=== PATIENT | female | born 1975 | race Caucasian/White ===

== ENCOUNTER 2023-12-14 12:05 | Emergency (ER) | payer OTHER ==
[2023-12-14 12:37] LABS: BASOPHILS ABSOLUTE AUTO 0.05 K/uL (0.00-0.20); BASOPHILS PERCENT AUTO 0.7 % (0.0-1.0); EOSINOPHILS ABSOLUTE AUTO 0.06 K/uL (0.00-0.45); EOSINOPHILS PERCENT AUTO 0.9 % (0.0-6.0); HEMATOCRIT 43.7 % (37.0-47.0); HEMOGLOBIN 14.9 g/dL (12.0-16.0); IMMATURE GRAN ABSOLUTE AUTO 0.02 K/uL (0.00-0.05); IMMATURE GRAN PERCENT AUTO 0.3 % (0.0-0.4); LYMPHOCYTES ABSOLUTE AUTO 1.67 K/uL (1.00-4.80); LYMPHOCYTES PERCENT AUTO 23.7 % (24.0-44.0); MEAN CORPUSCULAR HEMOGLOBIN 31.1 pg (28.0-32.0); MEAN CORPUSCULAR HGB CONC 34.1 g/dL (32.0-36.0); MEAN CORPUSCULAR VOLUME 91.2 fL (83.0-99.0); MEAN PLATELET VOLUME 9.5 fL (9.4-12.3); MONOCYTES ABSOLUTE AUTO 0.45 K/uL (0.00-0.80); MONOCYTES PERCENT AUTO 6.4 % (0.0-8.0); PLATELET COUNT,PLT 324 K/uL (150-400); RED BLOOD CELL COUNT 4.79 M/uL (4.10-5.30); WHITE BLOOD CELL COUNT,WBC 7.05 K/uL (3.9-11.3)
[2023-12-14] MEDS: Ondansetron 4 MG/2 ML SDV IVPUSH ONE (13:13)
[2023-12-14] MEDS: Ketorolac 30 MG/ML SDV IVPUSH ONE (13:13)
[2023-12-14] MEDS: Sodium Chloride 0.9% 1,000 ML IV ONE (13:13)
[2023-12-14 13:31] LABS: A/G RATIO 0.9 (0.9-1.6); ALBUMIN 3.2 g/dL (3.4-5.0); BILIRUBIN TOTAL 0.4 mg/dL (0.2-1.0); CALCIUM 8.3 mg/dL (8.5-10.1); CARBON DIOXIDE,CO2 31.5 mmol/L (21.0-32.0); EST CRCL DRUG DOSING (CG) 53.82 mL/min; POTASSIUM,K 4.3 mmol/L (3.5-5.1); PROTEIN TOTAL,TP 6.6 g/dL (6.4-8.2); TSH ULTRASENSITIVE 1.27 uIU/mL (0.36-3.74)
[2023-12-14 14:10] LABS: CORONAVIRUS COVID-19 NAA NEGATIVE (NEGATIVE); INFLUENZA A NAA NEGATIVE (NEGATIVE); INFLUENZA B NAA NEGATIVE (NEGATIVE)
== END 2023-12-14 15:17 | disposition home or self-care (01) ==
LOC: MW.ED 12:05
DX: I10 Essential (primary) hypertension (principal); R51.9 Headache, unspecified; Z90.49 Acquired absence of other specified parts of digestive tract; Z88.8 Allergy status to other drugs, medicaments and biological substances; Z88.5 Allergy status to narcotic agent; Z75.8 Other problems related to medical facilities and other health care
CPT/HCPCS: 0240U; 36415; 71045; 80053; 84443; 84484; 85025; 85379; 96361; 96374; 96375; 99284; J1885; J2405; J7030; 93010

== ENCOUNTER 2023-12-18 14:23 | Emergency (ER) | payer OTHER ==
[2023-12-18] MEDS: Sodium Chloride 0.9% 1,000 ML IV ONE ×2 (14:42→14:43)
[2023-12-18 14:51] LABS: BASOPHILS ABSOLUTE AUTO 0.08 K/uL (0.00-0.20); BASOPHILS PERCENT AUTO 1.2 % (0.0-1.0); EOSINOPHILS ABSOLUTE AUTO 0.17 K/uL (0.00-0.45); EOSINOPHILS PERCENT AUTO 2.6 % (0.0-6.0); HEMATOCRIT 42.7 % (37.0-47.0); HEMOGLOBIN 14.4 g/dL (12.0-16.0); IMMATURE GRAN ABSOLUTE AUTO 0.02 K/uL (0.00-0.05); IMMATURE GRAN PERCENT AUTO 0.3 % (0.0-0.4); LYMPHOCYTES ABSOLUTE AUTO 2.57 K/uL (1.00-4.80); LYMPHOCYTES PERCENT AUTO 38.9 % (24.0-44.0); MEAN CORPUSCULAR HEMOGLOBIN 30.8 pg (28.0-32.0); MEAN CORPUSCULAR HGB CONC 33.7 g/dL (32.0-36.0); MEAN CORPUSCULAR VOLUME 91.2 fL (83.0-99.0); MEAN PLATELET VOLUME 9.7 fL (9.4-12.3); MONOCYTES ABSOLUTE AUTO 0.56 K/uL (0.00-0.80); MONOCYTES PERCENT AUTO 8.5 % (0.0-8.0); NEUTROPHILS PERCENT AUTO 48.5 % (41.0-71.0); PLATELET COUNT,PLT 286 K/uL (150-400); RED BLOOD CELL COUNT 4.68 M/uL (4.10-5.30)
[2023-12-18 15:16] LABS: A/G RATIO 0.9 (0.9-1.6); ALANINE AMINOTRANSFERASE,ALT 34 IU/L (14-63); ALBUMIN 2.9 g/dL (3.4-5.0); ALKALINE PHOSPHATASE 78 U/L (46-116); ASPARTATE AMNIOTRANSFERASE,AST 32 IU/L (15-37); BILIRUBIN TOTAL 0.3 mg/dL (0.2-1.0); BLOOD UREA NITROGEN,BUN 12 mg/dL (7.0-18.0); CALCIUM 8.3 mg/dL (8.5-10.1); CARBON DIOXIDE,CO2 22.1 mmol/L (21.0-32.0); CHLORIDE,CL 104 mmol/L (98-107); CREATININE 1.1 mg/dL (0.6-1.0); EST CRCL DRUG DOSING (CG) 48.93 mL/min; ESTIMATED GFR 62 mL/min (>60); GLUCOSE RANDOM 110 mg/dL (74-106); POTASSIUM,K 3.9 mmol/L (3.5-5.1); SODIUM,NA 137 mmol/L (136-145)
== END 2023-12-18 17:39 | disposition home or self-care (01) ==
LOC: MW.ED 14:23
DX: T46.5X1A Poisoning by other antihypertensive drugs, accidental (unintentional), initial encounter (principal); I95.9 Hypotension, unspecified; Z75.8 Other problems related to medical facilities and other health care; I10 Essential (primary) hypertension; Z90.49 Acquired absence of other specified parts of digestive tract; Z90.710 Acquired absence of both cervix and uterus; Z87.891 Personal history of nicotine dependence; Z91.048 Other nonmedicinal substance allergy status; Z88.5 Allergy status to narcotic agent
CPT/HCPCS: 36415; 71045; 80053; 84484; 85025; 93005; 96360; 96361; 99285; J7030